=== PATIENT | male | born 1950 | race Caucasian/White ===

== ENCOUNTER 2024-04-04 08:09 | Inpatient (IN) | payer OTHER ==
[~2024-04-04] VITALS: Ht 182.9 cm; Wt 119.2 kg
[~2024-04-04 08:09] MED LIST: ALL100T PO; BUSP5TAB51 PO; GLIP5TAB21 PO; LISI40TA16 PO; METF-370 PO; METO25TA93 PO; OMEP20TA PO; PIOG1TAB37 OR; SIMV20TA20 PO
[2024-04-04] MEDS ORDERED: ROCURONIUM 10MG/ML 10ML VIAL IV ONE (10:09)
[2024-04-04] MEDS ORDERED: SODIUM CHLORIDE LOCK 50 ML ONE (10:09)
[2024-04-04] MEDS ORDERED: LIDOCAINE 1% INJ PF 5ML AMP ONE (10:09)
[2024-04-04] MEDS ORDERED: fentaNYL CITRATE 100 MCG/2 ML VL ONE ×2 (10:09→13:02)
[2024-04-04] MEDS ORDERED: ONDANSETRON HCL 4 MG/2 ML VIAL ONE (10:09)
[2024-04-04] MEDS ORDERED: KETAMINE 50mg/ML 1ml syringe ONE (10:09)
[2024-04-04] MEDS ORDERED: MIDAZOLAM HCL 2MG/2ML 2ml VIAL (1mg/ml) ONE (10:09)
[2024-04-04] MEDS ORDERED: MEPERIDINE HCL (50 MG/ML) 1 ML VIAL ONE (10:09)
[2024-04-04] MEDS ORDERED: PROPOFOL 10 MG/ML 20 ML IV ONE ×3 (10:09→13:50)
[2024-04-04] MEDS ORDERED: SUGAMMADEX 200mg/2ml Vial (100MG/ML) IV ONE (10:22)
[2024-04-04 14:44] VITALS: O2SAT 92
[2024-04-04] MEDS ORDERED: MORPHINE SULFATE INJ 2 MG/ml SYRG IV PRN ×3 (16:00→18:00)
[2024-04-04] MEDS ORDERED: NITROGLYCERIN 0.4 MG SL TAB SL PRN ×2 (16:00→18:00)
[2024-04-04 16:15] VITALS: PULSE 68; RESP 16; O2SAT 94
[2024-04-04 17:00] VITALS: BP 159/82; PULSE 87; RESP 18; TEMP 98.2; O2SAT 95
[2024-04-04] MEDS ORDERED: D5W/SOD CHLO 0.9% 1,000 ML IV SCH (18:00)
[2024-04-04] MEDS ORDERED: ONDANSETRON HCL 4 MG/2 ML VIAL IV PRN (18:00)
[2024-04-04] MEDS: SUCCINYLCHOLINE CHLORIDE 20 MG/ML 10ML VIAL IV ONE (18:40)
[2024-04-04] MEDS: levoFLOXacin 750MG 150 ML IV ONE (18:40)
[2024-04-04] MEDS: TRANEXAMIC ACID 20 ML ONE (18:40)
[2024-04-04] MEDS: HYDROcodone-ACET 10/325MG TAB PO PRN (18:57)
[2024-04-04 20:30] VITALS: PULSE 89; RESP 18; O2SAT 94
[2024-04-04 21:00] VITALS: BP 148/79; PULSE 91; RESP 18; TEMP 98.1; O2SAT 94
[2024-04-04] MEDS: glipiZIDE 5 MG TAB PO SCH (21:45)
[2024-04-04] MEDS: CYCLOBENZAPRINE HCL 10 MG TAB PO SCH (21:46)
[2024-04-04] MEDS: DOCUSATE SOD 100 MG CAP PO SCH (21:46)
[2024-04-05] VITALS (8 sets, daily range): BP systolic 130–165; BP diastolic 76–82; PULSE 80–93; RESP 17–20; TEMP 97.8–98.7; O2SAT 93–96
[2024-04-05] MEDS: ceFAZolin 1GM/50ML 50 ML IV SCH (01:11)
[2024-04-05] MEDS: LACTATED RINGER'S 1,000 ML IV SCH (01:16)
[2024-04-05] MEDS: busPIRone HCL 10 MG TAB PO SCH (05:57)
[2024-04-05] MEDS: PIOGLITAZONE HYDROCHLORIDE 30 MG TAB PO SCH (10:37)
[2024-04-05] MEDS: ALLOPURINOL 100 MG TAB PO SCH (10:38)
[2024-04-05] MEDS: PANTOPRAZOLE 40 MG TAB PO SCH (10:39)
[2024-04-05] MEDS: ATORVASTATIN 20 MG TAB PO SCH (10:39)
[2024-04-05] MEDS: METOPROLOL SUCCINATE XL 50 MG TAB PO SCH (10:43)
[2024-04-05] MEDS: LISINOPRIL 20 MG TAB PO SCH (10:45)
[2024-04-05] MEDS ORDERED: DEXTROSE (50%) 50ML SYRG IV PRN (12:15)
[2024-04-05 14:25] LABS: Calcium 9.8 mg/dL (8.7-10.4); Chloride 106 mmol/L (98-107); Sodium 140 mmol/L (136-145)
[2024-04-05 14:26] LABS: Anion Gap 8 (5-15); Carbon Dioxide 26 mmol/L (20-31)
[2024-04-05 14:31] LABS: Glucose 248 mg/dL (74-106)
[2024-04-05 14:37] LABS: BUN/Creatinine Ratio 12.3 (10.0-20.0); Blood Urea Nitrogen 15 mg/dL (9-23)
[2024-04-05 15:35] LABS: Basophils # (auto) 0 10 ^3/uL (0-0.2); Basophils % (auto) 0.1 % (0.0-2.0); Eosinophils # (auto) 0 10 ^3/uL (0-0.8); Hematocrit 42.2 % (41.0-53.0); Lymphocytes # (auto) 0.8 10 ^3/uL (0.4-5.4); Lymphocytes % (auto) 5.9 % (10.0-50.0); Mean Corpuscular Hemoglobin 28.8 pg (28.0-32.0); Mean Corpuscular Hgb Conc. 33.2 g/dL (32.0-36.0); Mean Corpuscular Volume 86.8 fL (80.0-100.0); Monocytes # (auto) 1.2 10 ^3/uL (0-1.3); Monocytes % (auto) 8.5 % (0.0-12.0); Neutrophils # (auto) 12.1 10 ^3/uL (1.6-8.6); Neutrophils % (auto) 85.5 % (37.0-80.0); Platelet Count (auto) 166 10^3/uL (140-450); Red Blood Cells 4.86 10^6/uL (4.5-5.90); Red Cell Distribution Width 14.5 % (11.8-14.3); White Blood Cell 14.1 10^3/uL (4.4-10.8)
[2024-04-05] MEDS: THROAT LOZENGES(CEPASTAT) MT PRN (15:43)
[2024-04-05] MEDS: CYCLOBENZAPRINE HCL 10 MG TAB PO ONE (16:44)
[2024-04-05] MEDS: InsuLIN REG 1unit/0.01ml Soln (100units/ml) SC SCH (17:00)
[2024-04-05] MEDS: ACCU-CHEK COMFORT CURVE STRIP VI SCH (17:16)
[2024-04-06 05:00] VITALS: BP 156/72; PULSE 97; RESP 20; TEMP 98; O2SAT 93
[2024-04-06 08:00] VITALS: PULSE 80; PULSE 90; RESP 18; O2SAT 93
[2024-04-06 09:00] VITALS: BP 148/86; PULSE 90; RESP 18; TEMP 97.7; O2SAT 94
[2024-04-06] MEDS: ACETAMINOPHEN 325 MG TAB PO PRN (09:39)
[2024-04-06] MEDS ORDERED: HYDR-4798 PO (11:36)
[2024-04-06] MEDS ORDERED: CYCL-611 PO (11:36)
[2024-04-06] MEDS ORDERED: DOCU-265 PO (11:36)
[2024-04-06 13:00] VITALS: BP 144/68; PULSE 95; RESP 18; TEMP 97.6; O2SAT 94
== END 2024-04-06 16:40 | disposition home health service (06) | DRG 473 ==
LOC: SUR 08:09 → OVERFLOW 15:57 → UNDOADMIN 15:57 → OVERFLOW 16:09 → WEST WING 16:09 → TELE-WESTW 17:54 → WEST WING 17:54 → TELE-WESTW 19:09
PROVIDERS: ADMIT Orthopaedic Surgery; ATTEND Orthopaedic Surgery
PROC: 0RB30ZZ Excision of Cervical Vertebral Disc, Open Approach (ICD-10-PCS; 2024-04-04)
PROC: 01N10ZZ Release Cervical Nerve, Open Approach (ICD-10-PCS; 2024-04-04)
PROC: 00NW0ZZ Release Cervical Spinal Cord, Open Approach (ICD-10-PCS; 2024-04-04)
PROC: 4A11X4G Monitoring of Peripheral Nervous Electrical Activity, Intraoperative, External Approach (ICD-10-PCS; 2024-04-04)
PROC: BR10ZZZ Fluoroscopy of Cervical Spine (ICD-10-PCS; 2024-04-04)
PROC: 0RG20A0 Fusion of 2 or more Cervical Vertebral Joints with Interbody Fusion Device, Anterior Approach, Anterior Column, Open Approach (ICD-10-PCS; principal; 2024-04-04 11:34)
DX: M48.02 Spinal stenosis, cervical region (principal); I10 Essential (primary) hypertension; E78.00 Pure hypercholesterolemia, unspecified; E11.9 Type 2 diabetes mellitus without complications; Z79.899 Other long term (current) drug therapy; Z79.84 Long term (current) use of oral hypoglycemic drugs; M50.120 Mid-cervical disc disorder, unspecified level; M62.830 Muscle spasm of back
CPT/HCPCS: 36415; 72040; 76000; 80048; 82962; 85025; 86850; 86900; 86901; 97163; G0378; J0330; J1956; J2250; J2405; J2704